=== PATIENT | male | born 1940 | race Caucasian/White ===

== ENCOUNTER 2018-05-24 09:56 | Inpatient (IN) ==
[2018-05-24] MEDS ORDERED: SILVER SULFADIAZINE 1% CREAM 25 GM TUBE TOP ONE (10:46)
[2018-05-24 11:48] LABS: Basophils % 0.3 % (0.0-0.8); Eosinophils # 0.1 10*3/uL (0.0-0.87); Hemoglobin 11.1 GM/DL (14.0-18.0); Immature Granulocytes % 0.5 %; Immature Granulocytes Absolute 0.04 #; Lymphocytes # 1.3 10*3/uL (1.4-4.0); Lymphocytes % 15.5 % (21.2-54.2); Mean Corpuscular HGB Conc 31.7 GM/DL (32-36); Mean Corpuscular Hemoglobin 28 PG (27-34); Mean Corpuscular Volume 88.4 FL (87-102); Mean Platelet Volume 10.1 FL (9.6-12.0); Monocytes # 0.6 10*3/uL (0.11-0.8); Monocytes % 7.1 % (1.7-12.7); Neutrophils # 6.5 10*3/uL (1.4-7.4); Neutrophils % 75.6 % (38.7-73.9); Platelet Count 222 T/CUMM (130-400); Red Blood Count 3.96 MC/CUMM (3.8-5.5); Red Cell Distribution Width 13.2 % (9.3-17.3); White Blood Count 8.6 T/CUMM (4-12)
[2018-05-24 11:58] LABS: PT Patient Result 11.2 SECS
[2018-05-24 12:20] LABS: Apearance,Urine CLEAR (Clear); Bilirubin,Urine Negative (Negative); Blood, Urine Negative (Negative); Glucose,Urine (UA) Negative (Negative); Ketones,Urine Negative (Negative); Mucus,Urine Occasional /LPF (Occasional); Nitrite,Urine Negative (Negative); Protein,Urine Negative; RBC,Urine 4 /HPF (0-4); Urine Color Yellow (Yellow); Urine Urobilinogen < 2.0 EU/DL (0.2-1.0); WBC,Urine 1 /HPF (0-6)
[2018-05-24 12:27] LABS: Alanine Aminotransferase 24 U/L (16-61); Albumin 3.3 G/DL (3.4-5.0); Alkaline Phosphatase 90 U/L (45-117); Aspartate Amino Transferase 15 U/L (0-37); Bilirubin,Total < 0.39 MG/DL (0.2-1.0); Blood Urea Nitrogen 18 MG/DL (7-18); Calcium 8.5 MG/DL (8.5-10.1); Glucose 203 MG/DL (74-106); Potassium 4.3 MMOL/L (3.5-5.1); Sodium 136 MMOL/L (136-145); Total Protein 7.4 G/DL (6.4-8.3); Troponin I < 0.015 NG/ML (0.00-0.045)
[2018-05-24] MEDS ORDERED: ONDANSETRON 4 MG/2 ML VIAL IV PRN (15:23)
[2018-05-24] MEDS ORDERED: ACETAMINOPHEN 325 MG TABLET PO PRN (15:23)
[2018-05-24] MEDS: SODIUM CHLORIDE 0.9% 1,000 ML IV SCH (17:46)
[2018-05-24] MEDS ORDERED: hydrALAZINE 10 MG TABLET PO PRN (19:06)
[2018-05-24] MEDS: TAMSULOSIN 0.4 MG CAPSULE PO SCH (22:08)
[2018-05-24] MEDS: DOCUSATE SODIUM 100 MG CAPSULE PO SCH (22:08)
[2018-05-24] MEDS: APIXABAN 5 MG TABLET PO SCH (22:08)
[2018-05-24] MEDS: SULFAMETHOX/TRIMETHOPRIM 800-160 MG TABLET PO SCH (22:08)
[2018-05-24] MEDS: CITALOPRAM 20 MG TABLET PO SCH (22:08)
[2018-05-24] MEDS: METOPROLOL TARTRATE 25 MG TABLET PO SCH (22:09)
[2018-05-24] MEDS: FINASTERIDE 5 MG TABLET PO SCH (22:09)
[2018-05-25 05:07] LABS: Basophils # 0.1 10*3/uL (0.0-0.2); Basophils % 0.3 % (0.0-0.8); Eosinophils # 0.1 10*3/uL (0.0-0.87); Eosinophils % 0.6 % (0.00-10.9); Hematocrit 36.4 VOL% (42.0-52.0); Immature Granulocytes % 0.5 %; Immature Granulocytes Absolute 0.07 #; Lymphocytes # 2.3 10*3/uL (1.4-4.0); Mean Corpuscular Hemoglobin 28 PG (27-34); Mean Corpuscular Volume 85.4 FL (87-102); Mean Platelet Volume 10.2 FL (9.6-12.0); Neutrophils # 10.9 10*3/uL (1.4-7.4); Neutrophils % 75.6 % (38.7-73.9); Platelet Count 266 T/CUMM (130-400); Red Blood Count 4.26 MC/CUMM (3.8-5.5); White Blood Count 14.5 T/CUMM (4-12)
[2018-05-25 05:27] LABS: Calcium 8.5 MG/DL (8.5-10.1); Osmolality,Calculated 270.2 MOS/KG (273-304); Potassium 4.1 MMOL/L (3.5-5.1)
[2018-05-25] MEDS: ATORVASTATIN 40 MG TABLET PO SCH (09:32)
[2018-05-25] MEDS: SULFAMETHOX/TRIMETHOPRIM 800-160 MG TABLET PO SCH ×2 (09:32→20:47)
[2018-05-25] MEDS: METOPROLOL TARTRATE 25 MG TABLET PO SCH ×2 (09:32→20:46)
[2018-05-25] MEDS: FLUDROCORTISONE 0.1 MG TABLET PO SCH (09:32)
[2018-05-25] MEDS: DOCUSATE SODIUM 100 MG CAPSULE PO SCH ×2 (09:32→20:46)
[2018-05-25] MEDS: INSULIN GLARGINE 100 UNIT/ML SUBCUT SCH (09:33)
[2018-05-25] MEDS: TAMSULOSIN 0.4 MG CAPSULE PO SCH ×2 (09:33→20:45)
[2018-05-25] MEDS: APIXABAN 5 MG TABLET PO SCH ×2 (09:33→20:45)
[2018-05-25] MEDS: PANTOPRAZOLE 40 MG TABLET PO SCH (09:33)
[2018-05-25] MEDS: ASPIRIN EC 81 MG TABLET PO SCH (09:33)
[2018-05-25] MEDS: MEMANTINE 5 MG TABLET PO SCH (11:00)
[2018-05-25] MEDS: FINASTERIDE 5 MG TABLET PO SCH (20:46)
[2018-05-25] MEDS: CITALOPRAM 20 MG TABLET PO SCH (20:46)
[2018-05-25] MEDS: SODIUM CHLORIDE 0.9% 1,000 ML IV SCH (22:29)
[2018-05-25] MEDS ORDERED: QUEtiapine 25 MG TABLET PO ONE (23:00)
[2018-05-25] MEDS ORDERED: LORazepam 2 MG/1 ML VIAL IV PRN (23:02)
[2018-05-26 05:14] LABS: Osmolality,Calculated 262.9 MOS/KG (273-304); Potassium 3.9 MMOL/L (3.5-5.1)
[2018-05-26] MEDS: PANTOPRAZOLE 40 MG TABLET PO SCH (09:20)
[2018-05-26] MEDS: SULFAMETHOX/TRIMETHOPRIM 800-160 MG TABLET PO SCH ×2 (09:20→21:53)
[2018-05-26] MEDS: TAMSULOSIN 0.4 MG CAPSULE PO SCH ×2 (09:20→21:53)
[2018-05-26] MEDS: ATORVASTATIN 40 MG TABLET PO SCH (09:20)
[2018-05-26] MEDS: MEMANTINE 5 MG TABLET PO SCH (09:20)
[2018-05-26] MEDS: METOPROLOL TARTRATE 25 MG TABLET PO SCH ×2 (09:20→21:53)
[2018-05-26] MEDS: APIXABAN 5 MG TABLET PO SCH ×2 (09:20→21:53)
[2018-05-26] MEDS: ASPIRIN EC 81 MG TABLET PO SCH (09:20)
[2018-05-26] MEDS: FLUDROCORTISONE 0.1 MG TABLET PO SCH (09:20)
[2018-05-26] MEDS: DOCUSATE SODIUM 100 MG CAPSULE PO SCH ×2 (09:20→21:54)
[2018-05-26] MEDS: INSULIN GLARGINE 100 UNIT/ML SUBCUT SCH (09:21)
[2018-05-26] MEDS: SODIUM CHLORIDE 0.9% 1,000 ML IV SCH (21:52)
[2018-05-26] MEDS: FINASTERIDE 5 MG TABLET PO SCH (21:53)
[2018-05-26] MEDS: CITALOPRAM 20 MG TABLET PO SCH (21:53)
[2018-05-26] MEDS: QUEtiapine 25 MG TABLET PO SCH (22:23)
[2018-05-27 04:45] LABS: Osmolality,Calculated 271.2 MOS/KG (273-304)
[2018-05-27] MEDS: APIXABAN 5 MG TABLET PO SCH ×2 (09:19→21:58)
[2018-05-27] MEDS: FLUDROCORTISONE 0.1 MG TABLET PO SCH (09:19)
[2018-05-27] MEDS: METOPROLOL TARTRATE 25 MG TABLET PO SCH ×2 (09:19→21:58)
[2018-05-27] MEDS: TAMSULOSIN 0.4 MG CAPSULE PO SCH ×2 (09:19→21:58)
[2018-05-27] MEDS: ATORVASTATIN 40 MG TABLET PO SCH (09:19)
[2018-05-27] MEDS: PANTOPRAZOLE 40 MG TABLET PO SCH (09:19)
[2018-05-27] MEDS: DOCUSATE SODIUM 100 MG CAPSULE PO SCH ×2 (09:19→21:59)
[2018-05-27] MEDS: MEMANTINE 5 MG TABLET PO SCH (09:19)
[2018-05-27] MEDS: SULFAMETHOX/TRIMETHOPRIM 800-160 MG TABLET PO SCH ×2 (09:19→21:58)
[2018-05-27] MEDS: INSULIN GLARGINE 100 UNIT/ML SUBCUT SCH (09:19)
[2018-05-27] MEDS: ASPIRIN EC 81 MG TABLET PO SCH (09:19)
[2018-05-27] MEDS ORDERED: LOPERAMIDE 2 MG CAPSULE PO ONE (11:45)
[2018-05-27] MEDS ORDERED: LOPERAMIDE 2 MG CAPSULE PO PRN (11:47)
[2018-05-27] MEDS: SODIUM CHLORIDE 0.9% 1,000 ML IV SCH (14:04)
[2018-05-27] MEDS: FINASTERIDE 5 MG TABLET PO SCH (21:58)
[2018-05-27] MEDS: CITALOPRAM 20 MG TABLET PO SCH (21:58)
[2018-05-27] MEDS: QUEtiapine 25 MG TABLET PO SCH (21:58)
[2018-05-27] MEDS: INSULIN REGULAR 100 UNIT/ML SUBCUT SCH (22:06)
[2018-05-28 04:57] LABS: Basophils % 0.5 % (0.0-0.8); Eosinophils # 0.3 10*3/uL (0.0-0.87); Eosinophils % 2.8 % (0.00-10.9); Hematocrit 31.9 VOL% (42.0-52.0); Hemoglobin 10.1 GM/DL (14.0-18.0); Immature Granulocytes % 0.3 %; Immature Granulocytes Absolute 0.03 #; Lymphocytes # 1.8 10*3/uL (1.4-4.0); Mean Corpuscular HGB Conc 31.7 GM/DL (32-36); Mean Corpuscular Hemoglobin 28 PG (27-34); Mean Corpuscular Volume 87.6 FL (87-102); Mean Platelet Volume 10.4 FL (9.6-12.0); Monocytes # 0.9 10*3/uL (0.11-0.8); Monocytes % 10.4 % (1.7-12.7); Neutrophils # 5.7 10*3/uL (1.4-7.4); Platelet Count 228 T/CUMM (130-400); Red Blood Count 3.64 MC/CUMM (3.8-5.5); Red Cell Distribution Width 13.3 % (9.3-17.3); White Blood Count 8.8 T/CUMM (4-12)
[2018-05-28 05:36] LABS: Albumin 2.6 G/DL (3.4-5.0); Bilirubin,Total 0.4 MG/DL (0.2-1.0); Calcium 7.9 MG/DL (8.5-10.1); Free T4 (Free Thyroxine) 1.01 NG/DL (0.76-1.46); Osmolality,Calculated 273.8 MOS/KG (273-304); Potassium 3.7 MMOL/L (3.5-5.1); Risk Ratio 2.06; Thyroid Stimulating Hormone 1.63 uIU/ml (0.358-3.74); Total Protein 6.5 G/DL (6.4-8.3); VLDL CHOLESTEROL 13.2 MG/DL
[2018-05-28] MEDS: INSULIN REGULAR 100 UNIT/ML SUBCUT SCH ×4 (07:50→21:47)
[2018-05-28] MEDS: METOPROLOL TARTRATE 25 MG TABLET PO SCH ×2 (09:09→21:46)
[2018-05-28] MEDS: APIXABAN 5 MG TABLET PO SCH ×2 (09:09→21:46)
[2018-05-28] MEDS: MEMANTINE 5 MG TABLET PO SCH (09:09)
[2018-05-28] MEDS: TAMSULOSIN 0.4 MG CAPSULE PO SCH ×2 (09:09→21:46)
[2018-05-28] MEDS: PANTOPRAZOLE 40 MG TABLET PO SCH (09:09)
[2018-05-28] MEDS: SULFAMETHOX/TRIMETHOPRIM 800-160 MG TABLET PO SCH ×2 (09:09→21:46)
[2018-05-28] MEDS: ASPIRIN EC 81 MG TABLET PO SCH (09:10)
[2018-05-28] MEDS: DOCUSATE SODIUM 100 MG CAPSULE PO SCH ×2 (09:10→22:28)
[2018-05-28] MEDS: FLUDROCORTISONE 0.1 MG TABLET PO SCH (09:10)
[2018-05-28] MEDS: INSULIN GLARGINE 100 UNIT/ML SUBCUT SCH (09:10)
[2018-05-28] MEDS: ATORVASTATIN 40 MG TABLET PO SCH (09:10)
[2018-05-28] MEDS: SODIUM CHLORIDE 0.9% 1,000 ML IV SCH (09:18)
[2018-05-28] MEDS: QUEtiapine 25 MG TABLET PO SCH (21:46)
[2018-05-28] MEDS: FINASTERIDE 5 MG TABLET PO SCH (21:46)
[2018-05-28] MEDS: CITALOPRAM 20 MG TABLET PO SCH (21:46)
[2018-05-29] MEDS: SODIUM CHLORIDE 0.9% 1,000 ML IV SCH ×2 (03:42→06:11)
[2018-05-29 05:47] LABS: Basophils % 0.5 % (0.0-0.8); Eosinophils # 0.4 10*3/uL (0.0-0.87); Eosinophils % 4.2 % (0.00-10.9); Hematocrit 33.8 VOL% (42.0-52.0); Hemoglobin 10.9 GM/DL (14.0-18.0); Immature Granulocytes % 0.5 %; Immature Granulocytes Absolute 0.04 #; Lymphocytes # 1.7 10*3/uL (1.4-4.0); Lymphocytes % 20.6 % (21.2-54.2); Mean Corpuscular HGB Conc 32.2 GM/DL (32-36); Mean Corpuscular Hemoglobin 29 PG (27-34); Mean Corpuscular Volume 88.3 FL (87-102); Mean Platelet Volume 9.9 FL (9.6-12.0); Monocytes # 0.9 10*3/uL (0.11-0.8); Neutrophils # 5.3 10*3/uL (1.4-7.4); Neutrophils % 63.2 % (38.7-73.9); Platelet Count 242 T/CUMM (130-400); Red Blood Count 3.83 MC/CUMM (3.8-5.5); Red Cell Distribution Width 13.2 % (9.3-17.3); White Blood Count 8.4 T/CUMM (4-12)
[2018-05-29 05:59] LABS: Calcium 8.3 MG/DL (8.5-10.1); Osmolality,Calculated 274.5 MOS/KG (273-304); Potassium 3.8 MMOL/L (3.5-5.1)
[2018-05-29] MEDS: INSULIN REGULAR 100 UNIT/ML SUBCUT SCH ×3 (07:51→15:49)
[2018-05-29] MEDS: INSULIN GLARGINE 100 UNIT/ML SUBCUT SCH (09:10)
[2018-05-29] MEDS: FLUDROCORTISONE 0.1 MG TABLET PO SCH (09:10)
[2018-05-29] MEDS: SULFAMETHOX/TRIMETHOPRIM 800-160 MG TABLET PO SCH (09:10)
[2018-05-29] MEDS: APIXABAN 5 MG TABLET PO SCH (09:10)
[2018-05-29] MEDS: PANTOPRAZOLE 40 MG TABLET PO SCH (09:11)
[2018-05-29] MEDS: METOPROLOL TARTRATE 25 MG TABLET PO SCH (09:11)
[2018-05-29] MEDS: ATORVASTATIN 40 MG TABLET PO SCH (09:11)
[2018-05-29] MEDS: ASPIRIN EC 81 MG TABLET PO SCH (09:11)
[2018-05-29] MEDS: TAMSULOSIN 0.4 MG CAPSULE PO SCH (09:11)
[2018-05-29] MEDS: MEMANTINE 5 MG TABLET PO SCH (09:11)
[2018-05-29] MEDS: DOCUSATE SODIUM 100 MG CAPSULE PO SCH (09:11)
[2018-05-29 15:44] VITALS: BP 156/67
== END 2018-05-29 17:38 | disposition home or self-care (01) | DRG 56 ==
LOC: N.ED 09:56 → SUATTDRO 15:23 → N.EDINP 15:23 → N.4E 16:25
PROVIDERS: ADMIT Family Medicine; ATTEND Family Medicine

== ENCOUNTER 2018-06-05 13:55 | Observation (INO) ==
[2018-06-05] MEDS ORDERED: SODIUM CHLORIDE 0.9% 1,000 ML IV STA (14:21)
[2018-06-05 14:35] LABS: Basophils % 0.5 % (0.0-0.8); Eosinophils # 0.4 10*3/uL (0.0-0.87); Eosinophils % 4.3 % (0.00-10.9); Hematocrit 34.1 VOL% (42.0-52.0); Hemoglobin 10.7 GM/DL (14.0-18.0); Immature Granulocytes % 0.3 %; Immature Granulocytes Absolute 0.03 #; Lymphocytes # 1.5 10*3/uL (1.4-4.0); Lymphocytes % 17.6 % (21.2-54.2); Mean Corpuscular HGB Conc 31.4 GM/DL (32-36); Mean Platelet Volume 9.3 FL (9.6-12.0); Monocytes % 11.7 % (1.7-12.7); Neutrophils % 65.6 % (38.7-73.9); Platelet Count 253 T/CUMM (130-400); Red Blood Count 3.92 MC/CUMM (3.8-5.5); Red Cell Distribution Width 13.1 % (9.3-17.3); White Blood Count 8.7 T/CUMM (4-12)
[2018-06-05 14:42] LABS: INR 1.1; PT Patient Result 11.7 SECS; Partial Thromboplastin Time 30.4 SECS (0-40)
[2018-06-05 14:53] LABS: Alanine Aminotransferase 27 U/L (16-61); Albumin 2.7 G/DL (3.4-5.0); Alkaline Phosphatase 103 U/L (45-117); Aspartate Amino Transferase 13 U/L (0-37); Bilirubin,Total < 0.39 MG/DL (0.2-1.0); Blood Urea Nitrogen 16 MG/DL (7-18); Calcium 8.4 MG/DL (8.5-10.1); Glucose 166 MG/DL (74-106); Osmolality,Calculated 274.1 MOS/KG (273-304); Total Protein 7.2 G/DL (6.4-8.3)
[2018-06-05 15:23] LABS: Apearance,Urine CLEAR (Clear); Bilirubin,Urine Negative (Negative); Blood, Urine Negative (Negative); Glucose,Urine (UA) 50 mg/dL (Negative); Hyaline Casts,Urine 5 /LPF (0-3); Ketones,Urine Negative (Negative); Mucus,Urine Occasional /LPF (Occasional); Nitrite,Urine Negative (Negative); Protein,Urine Negative; RBC,Urine <1 /HPF (0-4); Urine Color Yellow (Yellow); Urine Specific Gravity 1.018 (1.001-1.035); Urine Urobilinogen < 2.0 EU/DL (0.2-1.0); WBC,Urine 1 /HPF (0-6)
[2018-06-05 15:26] LABS: Barbiturates Screen,Urine Negative (Negative); Benzodiazepines Screen,Urine Negative (Negative); Cannabinoid Screen,Urine Negative (Negative); Opiate Screen,Urine Negative (Negative); Phencyclidine Screen,Urine Negative (Negative)
[2018-06-05] MEDS ORDERED: DEXTROSE 50% 25 GM/50 ML SYRINGE IV PRN (16:48)
[2018-06-05] MEDS ORDERED: GLUCAGON 1 MG VIAL IM PRN (16:48)
[2018-06-05] MEDS ORDERED: LACTULOSE 20 GM/30 ML UDCUP PO ONE (16:48)
[2018-06-05] MEDS: CITALOPRAM 20 MG TABLET PO SCH (20:36)
[2018-06-05] MEDS: FINASTERIDE 5 MG TABLET PO SCH (20:36)
[2018-06-05] MEDS: TAMSULOSIN 0.4 MG CAPSULE PO SCH (20:36)
[2018-06-05] MEDS: QUEtiapine 25 MG TABLET PO SCH (20:36)
[2018-06-05] MEDS: APIXABAN 5 MG TABLET PO SCH (20:36)
[2018-06-05] MEDS: INSULIN LISPRO 100 UNIT/ML SUBCUT SCH (20:37)
[2018-06-05] MEDS ORDERED: hydrALAZINE 20 MG/1 ML VIAL IV ONE (22:11)
[2018-06-06] MEDS: APIXABAN 5 MG TABLET PO SCH ×2 (09:27→21:14)
[2018-06-06] MEDS: INSULIN GLARGINE 100 UNIT/ML SUBCUT SCH (09:27)
[2018-06-06] MEDS: FLUDROCORTISONE 0.1 MG TABLET PO SCH (09:28)
[2018-06-06] MEDS: PANTOPRAZOLE 40 MG TABLET PO SCH (09:28)
[2018-06-06] MEDS: MEMANTINE 5 MG TABLET PO SCH (09:28)
[2018-06-06] MEDS: ATORVASTATIN 40 MG TABLET PO SCH (09:28)
[2018-06-06] MEDS: TAMSULOSIN 0.4 MG CAPSULE PO SCH ×2 (09:28→21:16)
[2018-06-06] MEDS: hydrALAZINE 25 MG TABLET PO SCH ×2 (09:28→21:14)
[2018-06-06] MEDS: sitaGLIPtin 100 MG TABLET PO SCH (09:30)
[2018-06-06] MEDS: MAGNESIUM CHLORIDE 64 MG TABLET PO SCH (09:30)
[2018-06-06] MEDS: ASPIRIN EC 81 MG TABLET PO SCH (09:30)
[2018-06-06] MEDS: INSULIN LISPRO 100 UNIT/ML SUBCUT SCH ×4 (11:02→21:14)
[2018-06-06] MEDS: CITALOPRAM 20 MG TABLET PO SCH (21:13)
[2018-06-06] MEDS: FINASTERIDE 5 MG TABLET PO SCH (21:13)
[2018-06-06] MEDS: QUEtiapine 25 MG TABLET PO SCH (21:14)
[2018-06-07] MEDS ORDERED: hydrALAZINE 25 MG TABLET PO ONE (01:30)
[2018-06-07 05:49] LABS: Basophils % 0.5 % (0.0-0.8); Eosinophils # 0.4 10*3/uL (0.0-0.87); Eosinophils % 4.5 % (0.00-10.9); Hematocrit 33.3 VOL% (42.0-52.0); Hemoglobin 10.9 GM/DL (14.0-18.0); Immature Granulocytes % 0.2 %; Immature Granulocytes Absolute 0.02 #; Lymphocytes # 2.1 10*3/uL (1.4-4.0); Lymphocytes % 25.2 % (21.2-54.2); Mean Corpuscular HGB Conc 32.7 GM/DL (32-36); Mean Corpuscular Volume 85.2 FL (87-102); Mean Platelet Volume 9.3 FL (9.6-12.0); Monocytes % 8.6 % (1.7-12.7); Platelet Count 244 T/CUMM (130-400); Red Blood Count 3.91 MC/CUMM (3.8-5.5); White Blood Count 8.4 T/CUMM (4-12)
[2018-06-07 06:22] LABS: Alanine Aminotransferase 23 U/L (16-61); Albumin 2.5 G/DL (3.4-5.0); Alkaline Phosphatase 97 U/L (45-117); Aspartate Amino Transferase 14 U/L (0-37); Bilirubin,Total < 0.39 MG/DL (0.2-1.0); Blood Urea Nitrogen 13 MG/DL (7-18); Calcium 8.7 MG/DL (8.5-10.1); Glucose 139 MG/DL (74-106); Osmolality,Calculated 276.7 MOS/KG (273-304); Total Protein 6.9 G/DL (6.4-8.3)
[2018-06-07] MEDS: INSULIN GLARGINE 100 UNIT/ML SUBCUT SCH (09:17)
[2018-06-07] MEDS: sitaGLIPtin 100 MG TABLET PO SCH (09:18)
[2018-06-07] MEDS: TAMSULOSIN 0.4 MG CAPSULE PO SCH ×2 (09:18→21:50)
[2018-06-07] MEDS: FLUDROCORTISONE 0.1 MG TABLET PO SCH (09:18)
[2018-06-07] MEDS: ATORVASTATIN 40 MG TABLET PO SCH (09:18)
[2018-06-07] MEDS: MEMANTINE 5 MG TABLET PO SCH (09:18)
[2018-06-07] MEDS: ASPIRIN EC 81 MG TABLET PO SCH (09:18)
[2018-06-07] MEDS: APIXABAN 5 MG TABLET PO SCH ×2 (09:18→21:49)
[2018-06-07] MEDS: INSULIN LISPRO 100 UNIT/ML SUBCUT SCH ×4 (09:19→21:51)
[2018-06-07] MEDS: hydrALAZINE 25 MG TABLET PO SCH ×2 (09:19→21:50)
[2018-06-07] MEDS: PANTOPRAZOLE 40 MG TABLET PO SCH (09:19)
[2018-06-07] MEDS: MAGNESIUM CHLORIDE 64 MG TABLET PO SCH (09:19)
[2018-06-07] MEDS ORDERED: TUBERCULIN SKIN TEST 0.1 ML SYRINGE INTRADERM ONE (11:00)
[2018-06-07] MEDS: BACLOFEN 10 MG TABLET PO PRN (21:49)
[2018-06-07] MEDS: CITALOPRAM 20 MG TABLET PO SCH (21:50)
[2018-06-07] MEDS: QUEtiapine 25 MG TABLET PO SCH (21:50)
[2018-06-07] MEDS: FINASTERIDE 5 MG TABLET PO SCH (21:50)
[2018-06-08] MEDS: FLUDROCORTISONE 0.1 MG TABLET PO SCH (09:14)
[2018-06-08] MEDS: MEMANTINE 5 MG TABLET PO SCH (09:14)
[2018-06-08] MEDS: hydrALAZINE 25 MG TABLET PO SCH ×2 (09:14→22:13)
[2018-06-08] MEDS: MAGNESIUM CHLORIDE 64 MG TABLET PO SCH (09:14)
[2018-06-08] MEDS: PANTOPRAZOLE 40 MG TABLET PO SCH (09:14)
[2018-06-08] MEDS: ATORVASTATIN 40 MG TABLET PO SCH (09:14)
[2018-06-08] MEDS: ASPIRIN EC 81 MG TABLET PO SCH (09:14)
[2018-06-08] MEDS: sitaGLIPtin 100 MG TABLET PO SCH (09:14)
[2018-06-08] MEDS: APIXABAN 5 MG TABLET PO SCH ×2 (09:14→22:13)
[2018-06-08] MEDS: TAMSULOSIN 0.4 MG CAPSULE PO SCH ×2 (09:14→22:12)
[2018-06-08] MEDS: INSULIN GLARGINE 100 UNIT/ML SUBCUT SCH (09:15)
[2018-06-08] MEDS: INSULIN LISPRO 100 UNIT/ML SUBCUT SCH ×4 (09:15→22:08)
[2018-06-08] MEDS: CITALOPRAM 20 MG TABLET PO SCH (22:12)
[2018-06-08] MEDS: FINASTERIDE 5 MG TABLET PO SCH (22:12)
[2018-06-08] MEDS: BACLOFEN 10 MG TABLET PO PRN (22:12)
[2018-06-08] MEDS: QUEtiapine 25 MG TABLET PO SCH (22:13)
[2018-06-09] MEDS: INSULIN LISPRO 100 UNIT/ML SUBCUT SCH ×4 (07:41→22:27)
[2018-06-09] MEDS ORDERED: MAGNESIUM HYDROXIDE SUSP 30 ML UDCUP PO ONE (07:58)
[2018-06-09] MEDS: INSULIN GLARGINE 100 UNIT/ML SUBCUT SCH (08:59)
[2018-06-09] MEDS: sitaGLIPtin 100 MG TABLET PO SCH (09:04)
[2018-06-09] MEDS: hydrALAZINE 25 MG TABLET PO SCH ×2 (09:04→22:25)
[2018-06-09] MEDS: ATORVASTATIN 40 MG TABLET PO SCH (09:04)
[2018-06-09] MEDS: TAMSULOSIN 0.4 MG CAPSULE PO SCH ×2 (09:04→22:27)
[2018-06-09] MEDS: APIXABAN 5 MG TABLET PO SCH ×2 (09:04→22:26)
[2018-06-09] MEDS: MAGNESIUM CHLORIDE 64 MG TABLET PO SCH (09:04)
[2018-06-09] MEDS: ASPIRIN EC 81 MG TABLET PO SCH (09:04)
[2018-06-09] MEDS: FLUDROCORTISONE 0.1 MG TABLET PO SCH (09:04)
[2018-06-09] MEDS: MEMANTINE 5 MG TABLET PO SCH (09:05)
[2018-06-09] MEDS: PANTOPRAZOLE 40 MG TABLET PO SCH (09:05)
[2018-06-09] MEDS: QUEtiapine 25 MG TABLET PO SCH (22:26)
[2018-06-09] MEDS: CITALOPRAM 20 MG TABLET PO SCH (22:26)
[2018-06-09] MEDS: FINASTERIDE 5 MG TABLET PO SCH (22:26)
[2018-06-10] MEDS: FLUDROCORTISONE 0.1 MG TABLET PO SCH (10:13)
[2018-06-10] MEDS: hydrALAZINE 25 MG TABLET PO SCH (10:14)
[2018-06-10] MEDS: MAGNESIUM CHLORIDE 64 MG TABLET PO SCH (10:14)
[2018-06-10] MEDS: ATORVASTATIN 40 MG TABLET PO SCH (10:14)
[2018-06-10] MEDS: TAMSULOSIN 0.4 MG CAPSULE PO SCH (10:14)
[2018-06-10] MEDS: ASPIRIN EC 81 MG TABLET PO SCH (10:14)
[2018-06-10] MEDS: MEMANTINE 5 MG TABLET PO SCH (10:15)
[2018-06-10] MEDS: INSULIN GLARGINE 100 UNIT/ML SUBCUT SCH (10:15)
[2018-06-10] MEDS: PANTOPRAZOLE 40 MG TABLET PO SCH (10:15)
[2018-06-10] MEDS: APIXABAN 5 MG TABLET PO SCH (10:15)
[2018-06-10] MEDS: sitaGLIPtin 100 MG TABLET PO SCH (10:15)
[2018-06-10] MEDS: INSULIN LISPRO 100 UNIT/ML SUBCUT SCH ×2 (10:16→12:19)
[2018-06-10 15:56] VITALS: BP 149/81
== END 2018-06-10 17:00 ==
LOC: EDUNIT# → N.EDINP 13:55 → N.ED 13:55 → N.2E 17:54
PROVIDERS: ADMIT Internal Medicine; ATTEND Internal Medicine